=== PATIENT | female | born 1980 | race Caucasian/White ===

== ENCOUNTER → 2017-12-28 | Outpatient (CLI) | payer BC ==
[2017-12-29 02:46] LABS: Gliadin AB IgA, Unit 4.7 U/mL
== END | disposition home or self-care (01) ==
LOC: LABWHC1 14:48
PROVIDERS: ATTEND Allergy & Immunology
DX: R10.9 Unspecified abdominal pain (principal)
CPT/HCPCS: 36415; 82784; 83516

== ENCOUNTER 2020-03-10 08:28 | Day surgery (SDC) | payer BC, OTHER ==
[2020-03-05 13:51] VITALS: BMI 31.8
[~2020-03-10 08:28] MED LIST: LACTATED RINGERS 1,000 ML IV SCH; LIDOCAINE 1% (10MG/ML) FOR IV START INTRADERMA PRN
[2020-03-10 08:57] VITALS: RESP 16; TEMP 98.3
[2020-03-10] MEDS ORDERED: PROPOFOL 10 MG/ML 20 ML VIAL IV ONE (09:34)
[2020-03-10] MEDS ORDERED: LIDOCAINE 1% INJ 10MG/ML (20 ML MDV) ONE (09:34)
--- NOTE | 2020-03-10 09:37 | P.GSHP ---
History of Present Illness H&P Date: 03/10/20 CHIEF COMPLAINT: GERD HISTORY OF PRESENT ILLNESS: The patient is a 40-year-old female who presents reports gastroesophageal reflux disease. Upper endoscopy was offered for further evaluation and management. PAST MEDICAL HISTORY: Please see list. PAST SURGICAL HISTORY: Please see list. MEDICATIONS: Please see list. ALLERGIES: Please see list. SOCIAL HISTORY: No illicit drug use FAMILY HISTORY: No reports of Crohn disease or ulcerative colitis. REVIEW OF ORGAN SYSTEMS: CONSTITUTIONAL: No reports of fevers or chills. GI: Denies any blood in stools or constipation. PHYSICAL EXAM: VITAL SIGNS: Stable GENERAL: Well-developed and pleasant in no acute distress. HEENT: No scleral icterus. Extraocular movements grossly intact. Moist buccal mucosa. NECK: Supple without lymphadenopathy. CHEST: Unlabored respirations. Equal bilateral excursions. CARDIOVASCULAR: Regular rate and rhythm. Distal 2+ pulses. ABDOMEN: Soft, nondistended. MUSCULOSKELETAL: No clubbing, cyanosis, or edema. ASSESSMENT: 1. Gastroesophageal reflux disease PLAN: 1. Recommend proceeding with an upper endoscopy Past Medical History Past Medical History: GERD/Reflux History of Any Multi-Drug Resistant Organisms: None Reported Past Surgical History: Cholecystectomy Additional Past Surgical History / Comment(s): NISSAIN Past Anesthesia/Blood Transfusion Reactions: No Reported Reaction Smoking Status: Former smoker - Past Family History Mother Family Medical History: Cancer Additional Family Medical History / Comment(s): UTERINE CANCER Medications and Allergies Home Medications Medication Instructions Recorded Confirmed Type Cephalexin [Keflex] 500 mg PO BID 03/05/20 03/10/20 History Medroxyprogesterone Acetate 150 mg IM DIRECTED 03/05/20 03/10/20 History [Depo-Provera] Montelukast Sodium [Singulair] 10 mg PO HS 03/05/20 03/10/20 History Omeprazole [PriLOSEC] 40 mg PO DAILY 03/05/20 03/10/20 History Allergies Allergy/AdvReac Type Severity Reaction Status Date / Time WHITE FISH Allergy Itching Uncoded 03/05/20 13:27 Surgical - Exam Vital Signs Temp Pulse Resp BP Pulse Ox 98.3 F 94 16 135/87 96 03/10/20 08:53 03/10/20 08:53 03/10/20 08:53 03/10/20 08:53 03/10/20 08:53
--- NOTE | 2020-03-10 09:51 | P.PCN ---
Date of Procedure: 03/10/20 Description of Procedure: PREOPERATIVE DIAGNOSIS: Gastroesophageal reflux disease. History of Jerri fundoplasty POSTOPERATIVE DIAGNOSIS: Gastroesophageal reflux disease. History of Jerri fundoplasty Gastritis. Diaphragmatic hiatal hernia OPERATION: Esophagogastroduodenoscopy with biopsies along antrum. SURGEON: Marilynn Varela MD ANESTHESIA: MAC. INDICATIONS: The patient is a 40-year-old female who presents with a history of reflux disease. Benefits and risks of the procedure were described. Informed consent was obtained. DESCRIPTION: The patient was brought into the endoscopy suite and laid in the left lateral decubitus position. An Olympus gastroscope was passed along the posterior roselia pharynx down to the distal esophagus where the squamocolumnar junction was encountered at 33 cm from the incisors. The stomach was entered and no bile reflux was found. Additional findings are listed below. Biopsies with cold forceps were obtained of the antrum. The first through third portion of the duodenum was examined and unremarkable. Retroflexion of the scope confirmed Hill grade 2 lower esophageal valve. The squamocolumnar junction demonstrated LA grade A erosive esophagitis. The stomach was desufflated. The patient tolerated the procedure well. FINDINGS: Squamocolumnar junction 33 cm from the incisors. Diaphragmatic hiatus at 35 cm. Hiatal hernia, 2 cm Hill grade 2 lower esophageal valve. LA grade B erosive esophagitis. No active duodenitis. Chronic gastritis RECOMMENDATIONS: Upper endoscopy as needed. Plan - Discharge Summary Discharge Rx Participant: No New Discharge Prescriptions: Continue Cephalexin [Keflex] 500 mg PO BID Omeprazole [PriLOSEC] 40 mg PO DAILY Montelukast Sodium [Singulair] 10 mg PO HS Medroxyprogesterone Acetate [Depo-Provera] 150 mg IM DIRECTED Discharge Medication List Cephalexin [Keflex] 500 mg PO BID 03/05/20 [History] Medroxyprogesterone Acetate [Depo-Provera] 150 mg IM DIRECTED 03/05/20 [History] Montelukast Sodium [Singulair] 10 mg PO HS 03/05/20 [History] Omeprazole [PriLOSEC] 40 mg PO DAILY 03/05/20 [History] Follow up Appointment(s)/Referral(s): Marilynn Varela MD [STAFF PHYSICIAN] - 03/23/20 Patient Instructions/Handouts: Gastroesophageal Reflux Disease (DC), Hiatal Hernia (DC) Discharge Disposition: HOME SELF-CARE
[2020-03-10 10:08] VITALS: BP 129/86; PULSE 84
== END 2020-03-10 10:34 | disposition home or self-care (01) ==
LOC: ORWHC2ENDO 08:28
PROVIDERS: ATTEND Surgery Plastic and Reconstructive Surgery
DX: K29.50 Unspecified chronic gastritis without bleeding (principal); K22.10 Ulcer of esophagus without bleeding; K21.9 Gastro-esophageal reflux disease without esophagitis; K31.9 Disease of stomach and duodenum, unspecified; K44.9 Diaphragmatic hernia without obstruction or gangrene; Z90.49 Acquired absence of other specified parts of digestive tract; Z87.891 Personal history of nicotine dependence; Z80.49 Family history of malignant neoplasm of other genital organs; Z98.890 Other specified postprocedural states; Z79.52 Long term (current) use of systemic steroids; Z79.899 Other long term (current) drug therapy; Z91.018 Allergy to other foods
CPT/HCPCS: 81025; 88305; 43239; J2001; J2704

== ENCOUNTER → 2020-03-18 | Outpatient (CLI) | payer OTHER ==
--- NOTE | 2020-03-18 09:15 | FL ---
EXAMINATION TYPE: FL barium swallow DATE OF EXAM: 03/18/2020 CLINICAL INDICATION: 40-year-old female with hematemesis, dysphagia, previous hiatal hernia surgery i n 2011 now with recurrent symptoms. COMPARISON: 12/26/2011. Total Fluoroscopy Time: 2 minutes 19 seconds Total images: 35 FINDINGS: The swallowing mechanism is normal and hypopharyngeal anatomy is preserved. The cervical and thoracic portions have a normal course and caliber and normal motility. The mucosa i s normal and no persistent filling defect is encountered. As contrast makes its way into the proximal stomach, some of the Jerri wrap is visualized. There see ms to be a tiny hiatal hernia which projects above the wrap. Gastroesophageal reflux could not be suhas cited during the course of the exam. IMPRESSION: Jerri wrap is visualized. However, a tiny hiatal hernia seems to be visualized above the level of th e wrap. Gastroesophageal reflux could not be elicited during the course of the exam.
== END | disposition home or self-care (01) ==
LOC: RADUSWWP 08:15
PROVIDERS: ATTEND Surgery Plastic and Reconstructive Surgery
DX: K92.0 Hematemesis (principal); R13.10 Dysphagia, unspecified
CPT/HCPCS: 74220

== ENCOUNTER → 2020-04-21 | Outpatient (CLI) | payer OTHER | END | disposition home or self-care (01) | LOC: LABWHC1 10:00 | PROVIDERS: ATTEND Surgery Plastic and Reconstructive Surgery | DX: Z01.89 Encounter for other specified special examinations (principal) | CPT/HCPCS: 36415; 93005 ==

== ENCOUNTER → 2020-05-04 | Day surgery (SDC) | payer OTHER ==
[2020-04-29 14:23] VITALS: BMI 31.8
[2020-05-04 13:39] VITALS: BP 147/95; PULSE 100; RESP 18; TEMP 97.8
--- NOTE | 2020-05-11 07:06 | CDI ---
Date: 05.11.20 CDS/Forging Press Setter Up Name: Gisele Sanchez Phone: If any questions, call Nayeli Bo Instrumentation And Control Technician at [phone] Patient Name: Nazia Aparicio Admit Date 05.04.20 Discharge Date: 05.04.20 ATTENTION: The [facility] Coding Staff appreciate your assistance in clarifying documentation. Please respond to the clarification below the line at the bottom and electronically sign. The [facility] Coding staff will review the response and follow-up if needed. Please note: Queries are made part of the Legal Health Record. If you have any questions, please contact the Instrumentation And Control Technician. Dear Dr. Hassan In order to code to the greatest specificity and for the greatest reimbursement I need the following information: Please document final diagnosis in your manometry report: Thank you for your kind consideration. MTDD
--- NOTE | 2020-05-12 13:55 | PCN ---
PROCEDURE NOTE DATE OF DICTATION: May 12, 2020. PROCEDURE PERFORMED: High-resolution impedance esophageal manometry. PREOPERATIVE DIAGNOSIS: Gastroesophageal reflux disease for possible anti-reflux surgery. DESCRIPTION OF PROCEDURE: After informed consent was obtained from the patient, she was brought into the endoscopy unit. The procedure was performed by endoscopy nurse, Cassandra. She was placed in supine position. The esophageal manometry catheter was gently passed from the external nostril and advanced into the esophagus and stomach. The study was performed using liquid and viscous solution. The study was interpreted using Cabery classification. The following are the study results: 1. Lower esophageal sphincter data: Mean IRP is 13 mmHg. Mean DCI is 773 mmHg. Distal latency is within normal limits. 2. Esophageal body: Peristaltic contractions 90%. Simultaneous contractions 0%. Ineffective contractions 0%. Retrograde contractions 10%. 3. Impedance study: Complete transit with liquid is 36% and complete transit with viscous is 54%. INTERPRETATION: The above esophageal manometry study shows normal lower esophageal sphincter and there was good peristalsis involving the esophageal body. No evidence of any esophageal dysmotility. MMODL / IJN: [id number] /
== END ==
LOC: ORWHC2ENDO 13:28
PROVIDERS: ATTEND Internal Medicine Gastroenterology
DX: K21.9 Gastro-esophageal reflux disease without esophagitis (principal)
CPT/HCPCS: 91010

== ENCOUNTER 2020-07-09 08:47 | Observation (INO) | payer OTHER ==
[2020-07-02 14:30] VITALS: BMI 31.1
--- NOTE | 2020-07-09 07:36 | P.GSHP ---
History of Present Illness H&P Date: 07/09/20 CHIEF COMPLAINT: Paraesophageal hiatal hernia with gastroesophageal reflux disease. HISTORY OF PRESENT ILLNESS: The patient is a 84-year-old female who presents with paraesophageal hiatal hernia. She has completed an esophageal manometry including upper endoscopy workup. Now she presents for surgical intervention. PAST MEDICAL HISTORY: Please see list. PAST SURGICAL HISTORY: Please see list. MEDICATIONS: Please see list. ALLERGIES: Please see list. SOCIAL HISTORY: No illicit drug use FAMILY HISTORY: No reports of Crohn disease or ulcerative colitis. REVIEW OF ORGAN SYSTEMS: CONSTITUTIONAL: No reports of fevers or chills. GI: Denies any blood in stools or constipation. PHYSICAL EXAM: VITAL SIGNS: Stable GENERAL: Well-developed pleasant and in no acute distress. HEENT: No scleral icterus. Extraocular movements grossly intact. Moist buccal mucosa. NECK: Supple without lymphadenopathy. CHEST: Unlabored respirations. Equal bilateral excursions. CARDIOVASCULAR: Regular rate and rhythm. Distal 2+ pulses. ABDOMEN: Soft, nondistended. No peritoneal signs. MUSCULOSKELETAL: No clubbing, cyanosis, or edema. SKIN: Well-perfused. Good skin turgor. MANOMETRY: Shows no evidence of achalasia or scleroderma. ASSESSMENT: 1. Diaphragmatic paraesophageal hiatal hernia with severe gastroesophageal reflux disease. PLAN: 1. Recommend proceeding with a robotic paraesophageal hiatal hernia with possible mesh. 2. Benefits and risks of surgical intervention was discussed including possibility of open technique. 3. Inpatient hospitalization recommended of 2 nights 4. DVT prophylaxis. 5. Antibiotic prophylaxis. 6. She has also completed a very low caloric high-protein diet to address underlying hepatomegaly. Past Medical History Past Medical History: GERD/Reflux Additional Past Medical History / Comment(s): HIATAL HERNIA History of Any Multi-Drug Resistant Organisms: None Reported Additional Past Surgical History / Comment(s): ashish fundoplication, EGD, Past Anesthesia/Blood Transfusion Reactions: No Reported Reaction Smoking Status: Former smoker - Past Family History Mother Family Medical History: Cancer Medications and Allergies Home Medications Medication Instructions Recorded Confirmed Type Medroxyprogesterone Acetate 150 mg IM DIRECTED 03/05/20 07/02/20 History [Depo-Provera] Montelukast Sodium [Singulair] 10 mg PO HS 03/05/20 07/02/20 History Allergies Allergy/AdvReac Type Severity Reaction Status Date / Time WHITE FISH Allergy Itching Uncoded 07/02/20 14:18
[~2020-07-09 08:47] MED LIST changes: +ACETAMINOPHEN TAB 500 MG TAB PO PRN; +DEXAMETHASONE SOD PHOSPHATE 10 MG/ML 1 ML VIAL IV PRN; +DEXAMETHASONE SOD PHOSPHATE 4 MG/ML 1 ML VIAL IV ONE; +GABAPENTIN 300 MG CAP PO PRN; +HEPARIN SODIUM,PORCINE/PF 5,000 UNIT/0.5 ML SYRINGE SQ PRN; +HYDROmorphone 0.5 MG/0.5 ML SYRINGE IVP PRN; -LIDOCAINE 1% (10MG/ML) FOR IV START INTRADERMA PRN; +MELOXICAM 7.5 MG TAB PO PRN; +MIDAZOLAM 2 MG/2 ML VIAL IV PRN; +ONDANSETRON 4 MG/2 ML VIAL IVP ONE; +SCOPOLAMINE 1.5MG/72HR PATCH TRANSDERM ONE; +SCOPOLAMINE 1.5MG/72HR PATCH TRANSDERM PRN
[2020-07-09 09:47] LABS: Basophils # (A) 0.1 k/uL (0-0.2); Basophils % (A) 1 %; Eosinophils # (A) 0.2 k/uL (0-0.7); Eosinophils % (A) 2 %; HCT 42.8 % (34.0-46.0); HGB 14.6 gm/dL (11.4-16.0); Lymphocytes # (A) 2.6 k/uL (1.0-4.8); Lymphocytes % (A) 27 %; MCH 29.3 pg (25.0-35.0); MCHC 34.2 g/dL (31.0-37.0); MCV 85.6 fL (80.0-100.0); Mean Platelet Volume 7.3; Monocytes # (A) 0.5 k/uL (0-1.0); Monocytes % (A) 5 %; Neutrophils % (A) 63 %; Platelet Count 376 k/uL (150-450); RDW 12.6 % (11.5-15.5); WBC 9.5 k/uL (3.8-10.6)
[2020-07-09 10:17] LABS: ALT 27 U/L (4-34); AST 25 U/L (14-36); African American GFR (CKD) >90 (>60 ml/min/1.73 sqM); Albumin 4.3 g/dL (3.5-5.0); Alkaline Phosphatase 56 U/L (38-126); Anion Gap 7 mmol/L; Blood Urea Nitrogen 10 mg/dL (7-17); Calcium 9.5 mg/dL (8.4-10.2); Carbon Dioxide 24 mmol/L (22-30); Chloride 109 mmol/L (98-107); Glucose 97 mg/dL (74-99); Non-African American GFR(CKD) >90 (>60 ml/min/1.73 sqM); Potassium 4.8 mmol/L (3.5-5.1); Sodium 140 mmol/L (137-145); Total Bilirubin 0.4 mg/dL (0.2-1.3); Total Protein 6.7 g/dL (6.3-8.2)
[2020-07-09] MEDS ORDERED: SUCCINYLCHOLINE CHLORIDE 100 MG/5 ML SYR IV ONE (10:45)
[2020-07-09] MEDS ORDERED: PROPOFOL 10 MG/ML 20 ML VIAL IV ONE (10:45)
[2020-07-09] MEDS ORDERED: NEOSTIGMINE 1 MG/ML 10 ML VIAL ONE (10:45)
[2020-07-09] MEDS ORDERED: LIDOCAINE 1% INJ 10MG/ML (20 ML MDV) ONE (10:45)
[2020-07-09] MEDS ORDERED: GLYCOPYRROLATE 0.2 MG/ML 2 ML VIAL ONE (10:45)
[2020-07-09] MEDS ORDERED: fentaNYL (PF) 50 MCG/ML 2 ML AMP ONE (10:45)
[2020-07-09] MEDS ORDERED: HYDROmorphone (PF) 1 MG/ML ONE (10:45)
[2020-07-09] MEDS ORDERED: ROCURONIUM 10 MG/ML (5 ML VIAL) IV ONE (10:45)
[2020-07-09] MEDS ORDERED: MIDAZOLAM 2 MG/2 ML VIAL ONE (10:45)
[2020-07-09] MEDS ORDERED: LIDOCAINE 1%-EPI 1:100,000 20 ML VIAL SQ ONE (11:11)
[2020-07-09] MEDS ORDERED: LACTATED RINGERS 1,000 ML IV ONE (12:56)
[2020-07-09 13:52] VITALS: RESP 16
[2020-07-09] MEDS ORDERED: NALOXONE 0.4 MG/ML 1 ML VIAL IV PRN (13:56)
[2020-07-09] MEDS ORDERED: diphenhydrAMINE 50 MG/ML 1 ML VIAL IVP PRN (13:56)
[2020-07-09] MEDS ORDERED: HYDROmorphone 1 MG/ML 1 ML SYRINGE IVP PRN (13:56)
[2020-07-09] MEDS ORDERED: 0.9% NACL WITH KCL 20 MEQ/L 1,000 ML IV SCH (14:00)
[2020-07-09] MEDS ORDERED: NON FORMULARY DRUG (Medroxyprogesterone Acetate [Depo-Provera] 150 MG/ML Syringe) IM SCH (14:00)
[2020-07-09] MEDS ORDERED: TRIMETHOBENZAMIDE 100 MG/ML 2 ML VIAL IM PRN (14:02)
[2020-07-09] MEDS: SODIUM CHLORIDE 0.9% 1,000 ML IV SCH ×2 (17:06→17:55)
[2020-07-09] MEDS: METOCLOPRAMIDE 5 MG/ML 2 ML VIAL IVP SCH ×2 (17:09→23:49)
[2020-07-09] MEDS: KETOROLAC 15 MG/ML 1 ML VIAL IVP SCH ×2 (17:10→23:45)
[2020-07-09] MEDS: ONDANSETRON 4 MG/2 ML VIAL IVP SCH ×2 (17:11→23:49)
[2020-07-09] MEDS: DEXAMETHASONE SOD PHOSPHATE 4 MG/ML 1 ML VIAL IV SCH ×2 (17:12→23:45)
[2020-07-09] MEDS: SIMETHICONE 40 MG/0.6 ML DROPS 2,000 MG/30 ML BOTTLE PO SCH ×2 (17:13→23:44)
[2020-07-09] MEDS: HYOSCYAMINE ORAL DROPS 1.875 MG/15 ML BOTTLE PO SCH ×2 (17:14→23:49)
--- NOTE | 2020-07-09 17:38 | P.OP ---
Date of Procedure: 07/09/20 Description of Procedure: SURGEON: SHA RIVERO MD PREOPERATIVE DIAGNOSES: 1. Paraesophageal hiatal hernia, midline, recurrent 2. Gastroesophageal reflux disease with esophagitis 3. History of previous Jerri fundoplasty 4. Epigastric abdominal pain 5. Dysphagia 6. Obesity due to excess calories, BMI 30.1 POSTOPERATIVE DIAGNOSES: 1. Paraesophageal hiatal hernia, midline, recurrent, incarcerated 4 x 3 cm with obstruction 2. Gastroesophageal reflux disease with esophagitis 3. History of previous Jerri fundoplasty 4. Epigastric abdominal pain 5. Dysphagia 6. Obesity due to excess calories, BMI 30.1 OPERATION: 1. Robotic-assisted da Brian Xi laparoscopic takedown of Jerri fundoplasty 2. Robotic-assisted da Brian Xi laparoscopic extensive lysis of adhesions over 2 hours for perigastric adhesions 3. Robotic-assisted da Brian Xi laparoscopic reduction and repair of recurrent incarcerated paraesophageal hiatal hernia, 4 x 3 cm, with Langley Biopatch A 8 x 8 cm. 4. Intraoperative esophagogastroduodenoscopy 5. Placement of 56-Syrian bougie Implants: Langley Biopatch A 8 x 8 cm Anesthesia: GETA, local Estimated Blood Loss (ml): 5 Pathology: none sent Condition: stable Disposition: floor Operative Findings: 1. Recurrent incarcerated paraesophageal hiatal hernia, 4 x 3 cm 2. Severe peritoneal adhesions perigastric with incarcerated hiatal hernia with obstruction with previous Jerri fundoplasty requiring over 2 hours 3. Division and take down of fundoplasty using vessel sealer 4. More than 20% of stomach incarcerated into chest reduced into abdominal cavity 5. Placement of 56 Fr bougie to address esophageal dysmotility INDICATIONS: The patient is a 40-year-old female who presents with gastroesophageal reflux with esophagitis and a symptomatic diaphragmatic hiatal hernia. Preoperative workup including upper endoscopy demonstrated recurrent h iatal hernia and slipped Jerri fundoplasty. Given the severity of symptoms, surgical intervention Was offered. Benefits and risks including bleeding, infection, recurrence, dysphagia, injury to the esophagus, and stomach injury to the lung, need for further surgery was described at length. Informed consent was obtained. DESCRIPTION: The patient was brought into the operating room and placed in supine position. Preoperatively he had received heparin subcutaneously for DVT prophylaxis. After general induction, the abdomen was prepped and draped in standard sterile fashion. Ioban draping was placed along the abdomen. A timeout protocol was confirmed with the surgical team, for which the patient's name, procedure to be performed including DVT prophylaxis with bilateral SCDs, and preoperative antibiotics were also confirmed. Robotic da Brian Xi system was prepped and primed. At 12 cm from the xiphoid to just below the umbilicus, proposed port sites were marked with indelible marker along the left axillary line, left mid-clavicular line with each ports were marked 10 cm from each other. A 5 mm 0 degrees laparoscopic trocar entry was performed along the left upper quadrant. The abdomen was insufflated to 15 mmHg pressure he tolerated well. Diagnostic laparoscopy demonstrated no injury to bowel, viscera, or mesentery. No injury had occurred to the small bowel or viscera. Along the hiatus, moderate perigastric adhesions were found from the previous fundoplasty. Next, one 8 mm robotic port was placed along the right upper abdomen. An 8-mm port was were placed along the left lateral abdominal wall. The camera 8-mm port was maintained along the epigastrium. A 12 mm port was placed along the left upper abdominal wall after exchanging the 5 mm port. Please note that the ports were placed at least 20 cm away from the target anatomy. Care was taken to check that each robotic arm were safely away from collision with the bed or the patient. At the epigastrium, a medium sized Kanu liver retractor was placed under direct visualization with the Iron Communication Skills Instructor placed under the right shoulder of the patient. The additional third robotic arm was used. The patient was repositioned in reverse Trendelenburg position at 21-degrees after lowering the bed. The robot was docked above the left side of the patient. Using a grasper for arm 3, a grasper for arm 1, including vessel sealer for arm 4, the robotic system was docked and primed as described. Instruments were interchanged by the observation assistant. I had sat at the console. The phrenoesophageal ligament had moderate scarring where the distal esophagus was mobilized circumferentially. Care was taken to avoid any injury to the stomach and esophagus. The hiatal hernia sac was incarcerated into the mediastinum and divided to allow complete mobilization and freeing of the distal esophagus into the abdominal cavity. Care was taken to avoid any gastrotomy to the incarcerated upper pole of the stomach including takedown of the Jerri fundoplasty. Extensive lysis of adhesions went more than 2 hours was used for extended dissection of the adherent stomach into the mediastinum. The hernia sac was divided to release mobility of the esophagus. Dissection went to the mid esophagus. The measured defect was consistent with 4 cm axial length and 3 cm in width. To prevent any injury to the stomach or esophagus, intraoperative EGD. Recurrence was found anterior along the hiatus. Previous hernia repair was intact. Once the hiatus and crura was dissected, nonabsorbable 2-0 VLOC suture was placed as a running suture to re-approximate the diaphragmatic hiatus posteriorly. To buttress the repair, a Langley Biopatch A was prepared along the back table and cut to reinforce the repair as an underlay. The mesh was placed along the crural repair posteriorly then cut in half and tagged using horizontal mattress sutures using 2-0 VLOC. I went to the head of the bed to perform intraoperative esophagogastroduodenoscopy. An Olympus gastroscope was passed through posterior oropharynx, where the GE junction was found just distal to the diaphragmatic hiatus. Complete takedown of the Jerri was confirmed and unraveled. The stomach was entered. Chronic gastritis was found. Retroflexion of the scope confirmed Hill grade 1+ lower esophageal sphincter. A 56-Syrian bougie was placed to address pre-existing esophageal dysmotility for 1 minute. The stomach had been desufflated. This concluded the endoscopic portion of the case. The robot was undocked from the patient. I re-scrubbed into the case. All instruments and pneumoperitoneum were evacuated from the abdominal cavity. Incisions were reapproximated using 4-0 Monocryl in an interrupted subcuticular fashion. All incisions were cleaned using dilute hydrogen peroxide. Fascial incisions were less than 8 mm in size. Liquid glue was applied to the skin. Local anesthetic was infiltrated in all wounds for postop analgesia. Multiple intra-abdominal films were obtained. At the end of the procedure, needle, sponge, and instrument count was verified correct by the surgical aide. The patient had tolerated the procedure well and was taken to the postanesthesia unit in stable condition. Intraoperative films were reviewed with the patient's family who were pleased with the level of care. Console time 145 minutes COMPLEXITY: Increased complexity of the case includes recurrent obstructing paraesophageal midline diaphragmatic hiatal hernia with extensive lysis of adhesions performed as well as moderate dissection into the chest requiring over 2 hours to release peritoneal adhesions
[2020-07-09] MEDS ORDERED: MONTELUKAST 10 MG TAB PO SCH (21:00)
[2020-07-10] MEDS: METOCLOPRAMIDE 5 MG/ML 2 ML VIAL IVP SCH (05:21)
[2020-07-10] MEDS: KETOROLAC 15 MG/ML 1 ML VIAL IVP SCH (05:21)
[2020-07-10] MEDS: SIMETHICONE 40 MG/0.6 ML DROPS 2,000 MG/30 ML BOTTLE PO SCH (05:21)
[2020-07-10] MEDS: DEXAMETHASONE SOD PHOSPHATE 4 MG/ML 1 ML VIAL IV SCH (05:26)
[2020-07-10] MEDS: HYOSCYAMINE ORAL DROPS 1.875 MG/15 ML BOTTLE PO SCH (05:27)
[2020-07-10] MEDS: ONDANSETRON 4 MG/2 ML VIAL IVP SCH (05:27)
[2020-07-10] MEDS: SODIUM CHLORIDE 0.9% 1,000 ML IV SCH (05:27)
[2020-07-10 05:39] LABS: Basophils % (A) 0 %; Eosinophils # (A) 0.1 k/uL (0-0.7); Eosinophils % (A) 1 %; HCT 37.1 % (34.0-46.0); HGB 12.7 gm/dL (11.4-16.0); Lymphocytes # (A) 1.3 k/uL (1.0-4.8); Lymphocytes % (A) 9 %; MCH 29.5 pg (25.0-35.0); MCHC 34.2 g/dL (31.0-37.0); MCV 86.4 fL (80.0-100.0); Mean Platelet Volume 7.2; Monocytes # (A) 0.5 k/uL (0-1.0); Monocytes % (A) 3 %; Neutrophils # (A) 12.8 k/uL (1.3-7.7); Neutrophils % (A) 87 %; Platelet Count 313 k/uL (150-450); RBC 4.29 m/uL (3.80-5.40); RDW 12.7 % (11.5-15.5); WBC 14.7 k/uL (3.8-10.6)
[2020-07-10 05:54] LABS: African American GFR (CKD) >90 (>60 ml/min/1.73 sqM); Anion Gap 6 mmol/L; Blood Urea Nitrogen 5 mg/dL (7-17); Calcium 8.8 mg/dL (8.4-10.2); Carbon Dioxide 22 mmol/L (22-30); Chloride 110 mmol/L (98-107); Non-African American GFR(CKD) >90 (>60 ml/min/1.73 sqM); Phosphorus 3.7 mg/dL (2.5-4.5); Potassium 4.3 mmol/L (3.5-5.1); Sodium 138 mmol/L (137-145)
[2020-07-10] MEDS ORDERED: 0.9% NACL WITH KCL 20 MEQ/L 1,000 ML IV SCH (08:00)
[2020-07-10 08:27] VITALS: BP 116/78; PULSE 96; TEMP 98.5
[2020-07-10] MEDS ORDERED: PANTOPRAZOLE 40 MG/10 ML VIAL IV SCH (09:00)
[2020-07-10] MEDS ORDERED: ENOXAPARIN 40 MG/0.4 ML SYRINGE SQ SCH (09:00)
--- NOTE | 2020-07-10 09:05 | FL ---
EXAMINATION TYPE: FL esophagus cervic/pharynx DATE OF EXAM: 07/10/2020 LIMITED UGI-ESOPHAGRAM: CLINICAL HISTORY: Repeat Rigo fundoplication surgery yesterday, recurrent hernia and epigastric pa in. TECHNIQUE: Limited esophagram is performed utilizing 20 oz of Isovue-370. A total of 30 seconds of f luoroscopic time was utilized during procedure and 13 images obtained. Comparison: Esophagram March 18, 2020 FINDINGS: The patient swallowed contrast without difficulty or delay. Esophageal peristalsis and mo tility are within normal limits. There is good flow of contrast along the diaphragmatic hiatus into t he stomach, there is no evidence of contrast extravasation to suggest leak. No persistent hiatal benjamin ia is seen. Patient remains asymptomatic. Cholecystectomy clips are seen. Tiny amount of free air bel ow right hemidiaphragm presumed postsurgical. IMPRESSION: No evidence of leak or significant obstruction status post repeat Rigo fundoplication s urgery yesterday.
[2020-07-10] MEDS ORDERED: ACETAMINOPHEN ORAL SUSP (PEDS) 3,840 MG/120 ML BOTTLE PO SCH (10:00)
--- NOTE | 2020-07-10 10:18 | P.PN ---
Subjective Progress Note Date: 07/10/20 CHIEF COMPLAINT: Gastroesophageal reflux disease HISTORY OF PRESENT ILLNESS: The patient is a 40-year-old status post repair of recurrent hiatal hernia repair, 07/09/20. She report no further reflux. No dy sphagia. She is tolerating diet. Jerri diet reviewed. ROS: No reports of nausea and vomiting. No fevers or chills. No new chest pain. No productive sputum PHYSICAL EXAM: VITAL SIGNS: Reviewed CONSTITUTIONAL: Well developed and in no acute distress. EYES: Conjuctivae without sclera icterus. Extraocular movements grossly intact. HEAD, EARS, NOSE, THROAT: Moist buccal mucosa. Head is atraumatic, normocephalic. Hears conversational speech. No nasal drainage. RESPIRATORY: Non-labored respirations and equal bilateral excursions. CARDIOVASCULAR: Palpable 2+ radial pulses. ABDOMEN: Intact MUSCULOSKELETAL: No gross deformity of the lower extremities noted. No clubbing. No cyanosis. SKIN: Good skin turgor. Well perfused. NEUROLOGIC: Cranial nerves II through XII grossly intact. No focal or lateralizing signs. PSYCH: Appropriate affect. Alert and oriented to person, place and time. STUDIES: Reviewed. Esophagram independently seen without obstruction. CLINICAL LABS: Reviewed ASSESSMENT: 1. Incarcerated recurrent hiatal hernia repair 2. Gastroesophageal reflux disease. PLAN: 1. Jerri diet reviewed. No straws, carbonated beverages, citrus or tomato based foods. 2. No lifting over 4 pounds for 4 weeks August 09 3. Overall stable for discharge 4. Non-narcotic pain plan reviewed. 5. Discontinue Omeprazole for discharge. Objective - Vital Signs Vital signs: Vital Signs Temp 98.5 F 07/10/20 08:05 Pulse 96 07/10/20 08:05 Resp 16 07/10/20 08:05 BP 116/78 07/10/20 08:05 Pulse Ox 95 07/10/20 08:05 Intake & Output 07/09/20 07/10/20 07/10/20 18:59 06:59 18:59 Intake Total 1650 Output Total 155 850 Balance 1495 -850 Weight 77 kg Intake: IV 1650 Output: Urine 150 850 Estimated Blood Loss 5 Other: Voiding Method Toilet # Voids 1 5 - Labs CBC & Chem 7: 07/10/20 05:27 07/10/20 05:27 Labs: Abnormal Lab Results - Last 24 Hours (Table) 07/09/20 07/10/20 07/10/20 Range/Units 09:37 05:27 05:27 WBC 14.7 H (3.8-10.6) k/uL Neutrophils # 12.8 H (1.3-7.7) k/uL Chloride 109 H 110 H (98-107) mmol/L BUN 5 L (7-17) mg/dL Creatinine 0.51 L (0.52-1.04) mg/dL
--- NOTE | 2020-07-10 10:19 | P.DS ---
Providers Date of admission: 07/10/20 06:22 Expected date of discharge: 07/10/20 Attending physician: Marilynn Varela Primary care physician: Stated None Hospital Course: CHIEF COMPLAINT: Gastroesophageal reflux disease HISTORY OF PRESENT ILLNESS: The patient is a 40-year-old status post repair of recurrent hiatal hernia repair, 07/09/20. She report no further reflux. No dysphagia. She is tolerating diet. Jerri diet reviewed. ROS: No reports of nausea and vomiting. No fevers or chills. No new chest pain. No productive sputum PHYSICAL EXAM: VITAL SIGNS: Reviewed CONSTITUTIONAL: Well developed and in no acute distress. EYES: Conjuctivae without sclera icterus. Extraocular movements grossly intact. HEAD, EARS, NOSE, THROAT: Moist buccal mucosa. Head is atraumatic, normocephalic. Hears conversational speech. No nasal drainage. RESPIRATORY: Non-labored respirations and equal bilateral excursions. CARDIOVASCULAR: Palpable 2+ radial pulses. ABDOMEN: Intact MUSCULOSKELETAL: No gross deformity of the lower extremities noted. No clubbing. No cyanosis. SKIN: Good skin turgor. Well perfused. NEUROLOGIC: Cranial nerves II through XII grossly intact. No focal or lateralizing signs. PSYCH: Appropriate affect. Alert and oriented to person, place and time. STUDIES: Reviewed. Esophagram independently seen without obstruction. CLINICAL LABS: Reviewed ASSESSMENT: 1. Incarcerated recurrent hiatal hernia repair 2. Gastroesophageal reflux disease. PLAN: 1. Jerri diet reviewed. No straws, carbonated beverages, citrus or tomato based foods. 2. No lifting over 4 pounds for 4 weeks August 09 3. Overall stable for discharge 4. Non-narcotic pain plan reviewed. 5. Discontinue Omeprazole for discharge. Patient Condition at Discharge: Good Plan - Discharge Summary Discharge Rx Participant: Yes New Discharge Prescriptions: New bisacodyL [Dulcolax] 5 mg PO DAILY PRN #10 tablet. PRN Reason: Constipation Ondansetron Odt [Zofran Odt] 4 mg PO Q8HR PRN #9 tab PRN Reason: Nausea Simethicone 40 mg/0.6 ml Drops [Mylicon Drops] 40 mg PO PCHS PRN #30 ml PRN Reason: Gas Acetaminophen Oral Susp [Tylenol Oral Susp] 1,000 mg PO Q4-6H PRN #400 ml PRN Reason: Pain Continue Montelukast Sodium [Singulair] 10 mg PO HS Medroxyprogesterone Acetate [Depo-Provera] 150 mg IM DIRECTED Discharge Medication List Medroxyprogesterone Acetate [Depo-Provera] 150 mg IM DIRECTED 03/05/20 [History] Montelukast Sodium [Singulair] 10 mg PO HS 03/05/20 [History] Acetaminophen Oral Susp [Tylenol Oral Susp] 1,000 mg PO Q4-6H PRN #400 ml 07/10/20 [Rx] Ondansetron Odt [Zofran Odt] 4 mg PO Q8HR PRN #9 tab 07/10/20 [Rx] Simethicone 40 mg/0.6 ml Drops [Mylicon Drops] 40 mg PO PCHS PRN #30 ml 07/10/20 [Rx] bisacodyL [Dulcolax] 5 mg PO DAILY PRN #10 tablet. 07/10/20 [Rx] Follow up Appointment(s)/Referral(s): Marilynn Varela MD [STAFF PHYSICIAN] - 07/15/20 Patient Instructions/Handouts: Laparoscopic Hiatal Hernia Repair (GEN) Activity/Diet/Wound Care/Special Instructions: Liquid diet only for 2 weeks until July 23 No lifting over 4 pounds in 4 weeks, August 09June shower No soaking in bath tubs for 2 weeks, July 23 Please notify your surgeon if you develop nausea and vomiting including new onset of abdominal pain. Please ambulate at all times. Use Simethicone, Gas-X, ibuprofen, Aleve Tylenol scheduled for the next 24-48 hours for best pain relief. Use ice along incisions for the today to prevent swelling. Please open, cut, crush pills larger than the size of a tic tack No carbonated beverages. No straws. Do not remove scopolamine patch for 3 days, if present Discharge Disposition: HOME SELF-CARE
[2020-07-11] MEDS ORDERED: bisacodyL 5 MG TABLET.DR PO PRN (08:00)
== END 2020-07-10 11:04 | disposition home or self-care (01) ==
LOC: OR 08:47 → 6PED 13:22 → OR 07-10 06:21 → 6PED 07-10 06:22
PROVIDERS: ADMIT Surgery Plastic and Reconstructive Surgery; ATTEND Surgery Plastic and Reconstructive Surgery
DX: K44.0 Diaphragmatic hernia with obstruction, without gangrene (principal); K21.00 Gastro-esophageal reflux disease with esophagitis, without bleeding; K22.4 Dyskinesia of esophagus; K66.0 Peritoneal adhesions (postprocedural) (postinfection); E66.09 Other obesity due to excess calories; Z68.30 Body mass index [BMI] 30.0-30.9, adult; Z79.899 Other long term (current) drug therapy; Z91.018 Allergy to other foods; Z98.890 Other specified postprocedural states; Z87.891 Personal history of nicotine dependence; Z80.9 Family history of malignant neoplasm, unspecified
CPT/HCPCS: 43282; 43450; S2900; 74210; 80051; 80053; 81025; 82310; 82565; 83735; 84100; 84520; 85025

== ENCOUNTER → 2021-02-03 | Outpatient (CLI) | payer OTHER ==
--- NOTE | 2021-02-04 11:02 | MM ---
Reason for exam: screening (asymptomatic). Baseline mammogram. History: Patient is nulliparous. Family history of breast cancer in maternal grandmother at age 70. Taking hormonal contraceptives for 12 years. Physical Findings: Nurse did not find any significant physical abnormalities on exam. MG Screening Mammo w CAD Bilateral CC and MLO view(s) were taken. There are scattered fibroglandular densities. Finding: There is a 4 mm obscured round mass in the posterior position of the left breast. Focal asymmetry 8mm middle depth upper aspect left breast. ASSESSMENT: Incomplete: need additional imaging evaluation, BI-RAD 0 RECOMMENDATION: Special view mammogram of the left breast. If lesion persists on supplemental views, image directed ultrasound is recommended. [facility] will attempt to contact patient to return for supplemental views and ultrasound if indicated.
== END ==
LOC: RADMAMWWP 14:08
PROVIDERS: ATTEND Obstetrics & Gynecology
DX: Z12.31 Encounter for screening mammogram for malignant neoplasm of breast (principal); Z80.3 Family history of malignant neoplasm of breast
CPT/HCPCS: 77067

== ENCOUNTER → 2021-02-10 | Outpatient (CLI) | payer OTHER ==
--- NOTE | 2021-02-14 10:25 | MM ---
Reason for exam: additional evaluation requested from abnormal screening. Last mammogram was performed less than 1 month ago. History: Patient is nulliparous. Family history of breast cancer in maternal grandmother at age 70. Taking hormonal contraceptives for 12 years. Physical Findings: Breast exam preformed at baseline screening. MG 3D Work Up W/Cad LT Spot compression CC, spot compression MLO, and LM view(s) were taken of the left breast. Prior study comparison: February 03, 2021, bilateral MG screening mammo w CAD. Tiny 4mm nodule far posterior 3-4 o'clock left breast. May have a fatty notch and could represent a node. These results were verbally communicated with the patient and result sheet given to the patient on 02/10/21. ASSESSMENT: Incomplete: need additional imaging evaluation, BI-RAD 0 RECOMMENDATION: Ultrasound of the left breast.
--- NOTE | 2021-02-14 10:26 | USB ---
Reason for exam: additional evaluation requested from abnormal screening. History: Patient is nulliparous. Family history of breast cancer in maternal grandmother at age 70. Taking hormonal contraceptives for 12 years. US Breast Workup Limited LT Technologist: Brenda Bender Left limited breast ultrasound including focal area of concern, retroareolar and axilla demonstrates no cystic or solid lesion seen. Scanned 2-5 o'clock. These results were verbally communicated with the patient and result sheet given to the patient on 02/10/21. ASSESSMENT: Probably benign, BI-RAD 3 RECOMMENDATION: Follow-up diagnostic mammogram of the left breast in 6 months.
== END | disposition home or self-care (01) ==
LOC: RADMAMWWP 14:54
PROVIDERS: ATTEND Obstetrics & Gynecology
DX: R92.8 Other abnormal and inconclusive findings on diagnostic imaging of breast (principal); N63.23 Unspecified lump in the left breast, lower outer quadrant; Z80.3 Family history of malignant neoplasm of breast
CPT/HCPCS: 77061; 77065

== ENCOUNTER → 2021-08-24 | Outpatient (CLI) | payer OTHER ==
--- NOTE | 2021-08-24 08:15 | MM ---
Reason for Exam: Follow-up at short interval from prior study. Last screening mammogram was performed 7 month(s) ago. Patient History: Menarche at age 14. Patient has no children. Currently using Hormonal Contraceptives, for 12 years. Maternal grandmother had breast cancer, age 70. Risk Values: Ronel 5 year model risk: 0.6%. NCI Lifetime model risk: 11.1%. Prior Study Comparison: 02/03/2021 Bilateral Screening Mammogram, [facility]. 02/10/2021 Left Diagnostic Mammogram, [facility]. Tissue Density: Left: There are scattered fibroglandular densities. Findings: Analyzed By CAD. Stable well-circumscribed 4 mm lesion in the left breast central posterior aspect. No new suspicious masses or clusters of microcalcifications bilaterally. Overall Assessment: Benign, BI-RAD 2 Management: Screening Mammogram of both breasts in 6 months. Back on schedule. Results were given to the patient verbally at the time of exam. Electronically signed and approved by: Landon Albright M.D.
== END | disposition home or self-care (01) ==
LOC: RADMAMWWP 07:38
PROVIDERS: ATTEND Obstetrics & Gynecology
DX: R92.8 Other abnormal and inconclusive findings on diagnostic imaging of breast (principal); Z80.3 Family history of malignant neoplasm of breast
CPT/HCPCS: 77061; 77065

== ENCOUNTER → 2022-02-27 | Outpatient (CLI) | payer OTHER ==
--- NOTE | 2022-02-28 19:04 | MM ---
Reason for Exam: Screening (asymptomatic). Last mammogram was performed 1 year(s) and 1 month(s) ago. Patient History: Menarche at age 14. Patient has no children. Premenopausal. Patient used Hormonal Contraceptives for 12 years. Maternal grandmother had breast cancer, age 70. Risk Values: Ronel 5 year model risk: 0.7%. NCI Lifetime model risk: 11.0%. Prior Study Comparison: 02/03/2021 Bilateral Screening Mammogram, [facility]. 02/10/2021 Left Diagnostic Mammogram, [facility]. 08/24/2021 Left MG 3D diag mammo w/cad LT, [facility]. Tissue Density: The breast tissue is heterogeneously dense. This may lower the sensitivity of mammography. Findings: Analyzed By CAD. Breast density has increased in the interval. Asymmetric density superior left MLO view and a middle depth is unchanged. Subtle low density nodularity posterior left CC view is unchanged as well. There is no suspicious group of microcalcifications or new suspicious mass in either breast. Overall Assessment: Benign, BI-RAD 2 Management: Screening Mammogram of both breasts in 1 year. 1. Patient should continue monthly self breast exams. 2. A clinical breast exam by your physician is recommended on an annual basis. 3. This exam should not preclude additional follow-up of suspicious palpable abnormalities. Electronically signed and approved by: Flakita Fermin M.D. Radiologist
== END | disposition home or self-care (01) ==
LOC: RADMAMWWP 16:57
PROVIDERS: ATTEND Obstetrics & Gynecology
DX: Z12.31 Encounter for screening mammogram for malignant neoplasm of breast (principal); Z80.3 Family history of malignant neoplasm of breast
CPT/HCPCS: 77063; 77067

== ENCOUNTER → 2023-03-26 | Outpatient (CLI) | payer OTHER ==
--- NOTE | 2023-03-28 08:17 | MM ---
Reason for Exam: Screening (asymptomatic). Last mammogram was performed 1 year(s) and 1 month(s) ago. Patient History: Menarche at age 14. Patient has no children. Premenopausal. Patient used Hormonal Contraceptives for 12 years. Maternal grandmother had breast cancer, age 70. Risk Values: Ronel 5 year model risk: 0.7%. NCI Lifetime model risk: 10.9%. Prior Study Comparison: 02/10/2021 Left Diagnostic Mammogram, [facility]. 08/24/2021 Left MG 3D diag mammo w/cad LT, [facility]. 02/27/2022 Bilateral MG 3D screening mammo w/cad, [facility]. Tissue Density: There are scattered fibroglandular densities. Findings: Analyzed By CAD. There is no suspicious group of microcalcifications or new suspicious mass. Overall Assessment: Negative, BI-RAD 1 Management: Screening Mammogram of both breasts in [address] [facility] will attempt to contact patient to return for supplemental views and ultrasound if indicated. Patient should continue monthly self-breast exams. A clinical breast exam by your physician is recommended on an annual basis. This exam should not preclude additional follow-up of suspicious palpable abnormalities. Note on Ronel scores and lifetime risk: 1. A Ronel score greater than 3% is considered moderate risk. If this is the case, consider specialist referral to assess eligibility for a risk reducing agent. 2. If overall lifetime risk for the development of breast cancer is 20% or higher, the patient may qualify for future screening with alternating mammogram and breast MRI. Electronically signed and approved by: Chetan Chapman DO
== END | disposition home or self-care (01) ==
LOC: RADMAMWWP 16:23
PROVIDERS: ATTEND Obstetrics & Gynecology
DX: Z12.31 Encounter for screening mammogram for malignant neoplasm of breast (principal); Z80.3 Family history of malignant neoplasm of breast
CPT/HCPCS: 77063; 77067

== ENCOUNTER → 2024-05-27 | Outpatient (CLI) | payer OTHER ==
--- NOTE | 2024-05-28 07:52 | MM ---
Reason for Exam: Screening (asymptomatic). Last mammogram was performed 1 year(s) and 2 month(s) ago. Patient History: Menarche at age 14. Patient has no children. Premenopausal. Patient used Hormonal Contraceptives for 12 years. Maternal grandmother had breast cancer, age 70. Maternal aunt had breast cancer at or over age 50. Risk Values: Ronel 5 year model risk: 0.8%. NCI Lifetime model risk: 10.8%. Prior Study Comparison: 08/24/2021 Left MG 3D diag mammo w/cad , [facility]. 02/27/2022 Bilateral MG 3D screening mammo w/cad, [facility]. 03/26/2023 Bilateral MG 3D screening mammo w/cad, [facility]. Tissue Density: There are scattered areas of fibroglandular density. Findings: Analyzed By CAD. Asymmetric density posterior superior left MLO view is unchanged. Chronic nodularity posterior central left cc view. There is no suspicious group of microcalcifications or new suspicious mass in either breast. Overall Assessment: Benign, BI-RAD 2 Management: Screening Mammogram of both breasts in 1 year. Patient should continue monthly self-breast exams. A clinical breast exam by your physician is recommended on an annual basis. This exam should not preclude additional follow-up of suspicious palpable abnormalities. Note on Ronel scores and lifetime risk: 1. A Ronel score greater than 3% is considered moderate risk. If this is the case, consider specialist referral to assess eligibility for a risk reducing agent. 2. If overall lifetime risk for the development of breast cancer is 20% or higher, the patient may qualify for future screening with alternating mammogram and breast MRI. [facility], , 05/28/2024 7:49 AM. Electronically signed and approved by: Flakita Fermin M.D. Radiologist
== END | disposition home or self-care (01) ==
LOC: RADMAMWWP 16:34
PROVIDERS: ATTEND Obstetrics & Gynecology
DX: Z12.31 Encounter for screening mammogram for malignant neoplasm of breast (principal); R92.323 Mammographic fibroglandular density, bilateral breasts; Z92.0 Personal history of contraception; Z80.3 Family history of malignant neoplasm of breast
CPT/HCPCS: 77063; 77067